=== PATIENT | female | born 1955 | race Two or more races ===

== ENCOUNTER → 2016-05-23 | Outpatient (CLI) | payer OTHER ==
--- NOTE | 2016-05-23 13:55 | DX ---
Chest, Two Views at 1119 hours History: Cough, shortness of breath, R05, R06.02, R07.9 Comparison: November 2015. Findings: Cardiac silhouette is within normal range. Median sternotomy wires, mediastinal clips, and cardiac recording device noted. Bilateral peribronchial thickening consistent with chronic bronchitis . No pneumonia, congestive heart failure, pleural effusion, or pneumothorax. Impression: 1. Bronchitis. 2. No focal pneumonia. A Call Requested message has been communicated to Colette Arzola MD via the [employer] Result system on 05/23/2016 13:53, Message ID [id number].
== END ==
LOC: FIMAGING 11:03
PROVIDERS: ATTEND Internal Medicine
DX: J20.9 Acute bronchitis, unspecified (principal)

== ENCOUNTER → 2017-02-06 | Outpatient (CLI) | payer OTHER | LOC: FIMAGING 10:13 | PROVIDERS: ATTEND Internal Medicine | DX: Z13.820 Encounter for screening for osteoporosis (principal); M85.80 Other specified disorders of bone density and structure, unspecified site ==

== ENCOUNTER 2018-02-20 09:37 | Day surgery (SDC) | payer OTHER ==
[2018-02-20] MEDS ORDERED: LIDOCAINE 1% 300 MG/30 ML SDV SC ONE (09:42)
--- NOTE | 2018-02-20 09:52 | PDGENHP ---
History and Physical History and Physical: Patient is a 62 y/o female with history of syncope s/p LINQ implant in past. Interrogation of the device back in mid December without pathologic arrhythmias noted. No new events have been appreciated. Implantation was back in 2015. No cardiovascular complaints were voiced.
--- NOTE | 2018-02-20 10:21 | SUROPNOTE ---
[facility] Operative Report - Surgery LINQ explant Indication: Duration of study completed Procedure details: Consent for explant was signed, and patient was prepped in usual sterile fashion. Lidocaine to the old surgical scar. Incision with #12 blade over the anterior/medial aspect of the palpated device. Device was mobilized and explanted without difficulty SN: [id number] No complications were appreciated Three jake were placed to approximate the skin Follow up with cardiology in 1 week.
--- NOTE | 2018-02-20 14:26 | CPEKG ---
Test Reason : OPEN Blood Pressure : / mmHG Vent. Rate : 067 BPM Atrial Rate : 067 BPM P-R Int : 165 ms QRS Dur : 083 ms QT Int : 385 ms P-R-T Axes : 080 052 049 degrees QTc Int : 407 ms Sinus rhythm Biatrial enlargement Confirmed by Ramón Patel ([id number]) on 02/20/2018 2:25:37 PM Referred By: Confirmed By:Ramón Patel
== END 2018-02-20 12:17 | disposition home or self-care (01) ==
LOC: FCATH 09:37
PROVIDERS: ATTEND Internal Medicine Cardiovascular Disease
PROC: 0JPT02Z Removal of Monitoring Device from Trunk Subcutaneous Tissue and Fascia, Open Approach (ICD-10-PCS; principal; 2018-02-20)
DX: Z45.09 Encounter for adjustment and management of other cardiac device (principal)